=== PATIENT | female | born 1950 | race Caucasian/White ===

== ENCOUNTER 2018-03-30 07:34 | Emergency (ER) | payer MEDICARE, OTHER | END 2018-03-30 08:04 | disposition home or self-care (01) | LOC: FTE 07:34 | DX: R21 Rash and other nonspecific skin eruption (principal); Z85.43 Personal history of malignant neoplasm of ovary | CPT/HCPCS: 99283 ==

== ENCOUNTER 2018-12-10 12:39 | Emergency (ER) | payer MEDICARE, OTHER ==
[2018-12-10] MEDS: SOD CHLORIDE 0.9% 500 ML IV (13:31)
[2018-12-10 13:37] LABS: ADD MAN DIFF? NO
[2018-12-10 13:41] LABS: BASOPHIL # 0.1 10^3/ul (0.0-0.1); EOSINOPHILS # 0.2 10^3/ul (0.0-0.5); EOSINOPHILS % 2.1 % (0.0-7.0); HEMATOCRIT 40.4 % (37.0-47.0); HEMOGLOBIN 13.9 g/dl (12.0-16.0); LYMPHOCYTES # 3.1 10^3/ul (0.8-2.9); LYMPHOCYTES % 42.3 % (15.0-51.0); MEAN CORPUSCULAR HEMOGLOBIN 29.4 pg (29.0-33.0); MEAN CORPUSCULAR HGB CONC 34.4 g/dl (32.0-37.0); MEAN CORPUSCULAR VOLUME 85.6 fl (82.0-101.0); MEAN PLATELET VOLUME 9.8 fl (7.4-10.4); MONOCYTE # 0.7 10^3/ul (0.3-0.9); MONOCYTES % 9.7 % (0.0-11.0); NEUTROPHIL # 3.2 10^3/ul (1.6-7.5); NEUTROPHILS % 44.5 % (39.0-77.0); PLATELET COUNT 343 10^3/UL (140-415); RED BLOOD COUNT 4.72 10^6/ul (4.20-5.40); RED CELL DISTRIBUTION WIDTH 13.2 % (11.5-14.5)
[2018-12-10 13:41] LABS: WHITE BLOOD COUNT 7.3 10^3/ul (4.8-10.8)
[2018-12-10 13:59] LABS: ANION GAP 10 (5-13); BLOOD UREA NITROGEN 14 mg/dl (7-20); CALCIUM 10.2 mg/dl (8.4-10.2); CARBON DIOXIDE 30 mmol/L (21-31); CHLORIDE 100 mmol/L (97-110); Estimated GFR > 60 mL/min (>60); GLUCOSE 92 mg/dl (70-220); INR 0.85; POTASSIUM 4.4 mmol/L (3.5-5.1); PROTIME 11.7 Sec (11.9-14.9); PT RATIO 0.9; SODIUM 140 mmol/L (135-144)
[2018-12-10 14:10] LABS: TROPONIN-I < 0.012 ng/ml (0.000-0.120)
== END 2018-12-10 15:10 | disposition home or self-care (01) ==
LOC: E/R 12:39
DX: H11.32 Conjunctival hemorrhage, left eye (principal); R53.83 Other fatigue; I10 Essential (primary) hypertension; I25.10 Atherosclerotic heart disease of native coronary artery without angina pectoris; Z79.82 Long term (current) use of aspirin; Z85.43 Personal history of malignant neoplasm of ovary
CPT/HCPCS: 36415; 71045; 80048; 82962; 84484; 85025; 85610; 93005; 99285-25